=== PATIENT | male | born 1965 | race Caucasian/White ===

== ENCOUNTER 2020-01-08 14:49 | Outpatient (CLI) | payer OTHER ==
--- NOTE | 2020-01-08 16:12 | MRI ---
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 COMPARISON: MRI of the left knee from prior radiology associates dated April 02, 2017 and 2013 FINDINGS: Joint effusion: There is a mild-sized joint effusion Semimembranosus-medial gastrocnemius popliteal cyst: There is a moderate size Woods's cyst Ligaments: There is mild mucoid degeneration the ACL. The PCL is intact. The MCL and LCLC are intact. Extensor mechanism: Intact. Menisci: There is worsening degenerative type tears involving the body of the medial meniscus with pa rtial medial extrusion. There is no extension of the previously seen horizontally oriented tear in to the anterior horn of the medial meniscus. There is now a horizontally oriented fluid fragment seen overlying the posterior horn and posterior junction of the medial meniscus on image 7 of series 6. The lateral meniscus is intact. Articular cartilage: There is worsening full-thickness articular cartilage thinning involving the med ial femoral tibial joint compartment, particularly the medial femoral condyle, with a full-thickness articular cartilage defect involving the central aspect of the medial femoral condyle measuring 3.0 x 2.1 cm where previously this defect measured 2.5 x 2 cm. There is corresponding full-thickness thinning involving the medial tibial plateau. There is mild diffuse chondral thinning involving the lateral femoral tibial joint compartment with a focal near full-thickness chondral defect involving the lateral femoral condyle measuring 5 mm on image 27 of series 9 and image 26 of s eries 9. There is a new near full-thickness defect involving the central femoral trochlea measuring 5 mm on image 13 of series 4. There is a near full-thickness articular cartilage fissure involving th e medial patellar facet measuring 1.7 mm on image 9 of series 4. Osseous structures: There are degenerative subchondral cystlike abnormalities under lying the PCL att achment. No acute fracture is evident. There are small marginal osteophytes involving the major compartments of the left knee, most severely the medial femorotibial and patellofemoral compartments. Popliteus and IT band: Normal. IMPRESSION: 1. Worsening mild osteoarthrosis of the left knee, predominantly affecting the medial femoral tibial and patellofemoral compartments. 2. Worsening medial meniscal tear. Previously seen horizontal oriented tear involving the body, poste rior junction and posterior horn of the medial meniscus is now extended into the anterior horn of the medial meniscus. There is a superior flipped fragment component involving the posterior horn and posterior junction of the medial meniscus arising from the posterior horn and posterior junction horizontal tear. 3. Moderate-sized Woods's cyst
== END 2020-01-08 14:50 | disposition home or self-care (01) ==
LOC: TBSIIMAG 14:49
PROVIDERS: ATTEND Internal Medicine
DX: M23.92 Unspecified internal derangement of left knee (principal); M17.12 Unilateral primary osteoarthritis, left knee; M71.22 Synovial cyst of popliteal space [Baker], left knee; S83.242A Other tear of medial meniscus, current injury, left knee, initial encounter

== ENCOUNTER 2021-02-24 15:08 | Outpatient (CLI) | payer OTHER | END 2021-02-24 15:09 | disposition home or self-care (01) | LOC: BICCT 15:08 | PROVIDERS: ATTEND Internal Medicine | DX: Z82.49 Family history of ischemic heart disease and other diseases of the circulatory system (principal) | CPT/HCPCS: 75571 ==

== ENCOUNTER 2022-02-16 19:36 | Emergency (ER) | payer OTHER ==
[2022-02-16 20:03] LABS: #Basophils 0.1 thou/uL (0.0-0.2); #Eosinphils 0.1 thou/uL (0.0-0.7); #Lymphocytes 1.6 thou/uL (1.20-3.40); #Monocytes 0.5 thou/uL (0.11-0.59); #Neutrophils 5.9 thou/uL (1.40-6.50); %Basophils 1.1 % (0.0-1.0); %Eosinophils 1.4 % (0.0-10.0); %Lymphocytes 19.6 % (21.0-51.0); %Monocytes 6.3 % (0.0-10.0); %Neutrophils 71.6 % (42.0-75.0); Hemoglobin 14.5 g/dL (14.0-18.0); Mean Corpuscular HGB CONC 33.4 g/dL (32.0-36.0); Mean Corpuscular Hemoglobin 31.8 pg (27.0-31.0); Mean Corpuscular Volume 94.9 fL (78.0-98.0); Platelet Count 277 thou/uL (130-400); RBC Distribution Width 11.6 % (11.5-14.5); Red Blood Cell (RBC) Count 4.55 mill/uL (4.70-6.10); White Blood Cell (WBC) Count 8.2 thou/uL (4.8-10.8)
[2022-02-16 20:25] LABS: ALT (SGPT) 18 U/L (8-55); AST (SGOT) 23 U/L (5-34); Albumin 4.5 g/dL (3.5-5.0); Alkaline Phosphatase 85 U/L (40-110); Anion Gap 12 mmol/L (10-20); BUN (Urea Nitrogen) 19 mg/dL (8.4-25.7); Bilirubin, Total 0.4 mg/dL (0.2-1.2); Calc. Creatinine Clearance 0 mL/min (70-130); Calcium 9.8 mg/dL (7.8-10.44); Carbon Dioxide 24 mmol/L (22-29); Chloride 108 mmol/L (98-107); Estimated GFR 75; Globulin 3.1 g/dL (2.4-3.5); Glucose 75 mg/dL (70-105); Potassium 4.4 mmol/L (3.5-5.1); Protein, Total 7.6 g/dL (6.0-8.3); Sodium 140 mmol/L (136-145)
[2022-02-16 23:57] LABS: Troponin I 0.014 ng/mL (< 0.028)
== END 2022-02-17 00:15 | disposition home or self-care (01) ==
LOC: ERS 19:36
DX: R07.2 Precordial pain (principal)
CPT/HCPCS: 36415; 71045; 80053; 84484; 85025; 93005; 94760